=== PATIENT | female | born 1995 | race Caucasian/White ===

== ENCOUNTER 2016-10-27 17:08 | Observation (INO) | payer OTHER ==
[2016-10-27] MEDS ORDERED: ACETAMINOPHEN 325 MG TABLET PO ONE (19:19)
--- NOTE | 2016-10-27 19:22 | ER Document Report ---
ED Medical Screen (RME) - General Chief Complaint: Lower Abdominal Pain Stated Complaint: ABDOMINAL PAIN Mode of Arrival: Ambulatory Information source: Patient Notes: pt presents to the ED with c/o RLQ abd pain for 4 days. Has had this in the past , was in the process of being evaluated for ovarian cysts. Has had pain in past , worse for 4 days. TTP RLQ radiates to pelvic area, reports when she stands it feels like everything will fall out. - Related Data Allergies/Adverse Reactions: No Known Allergies Allergy (Unverified 10/27/16 19:19) Physical Exam - Vital signs Vitals: Temp Pulse Resp BP Pulse Ox 98.0 F 76 16 109/68 100 10/27/16 17:40 10/27/16 17:40 10/27/16 17:40 10/27/16 17:40 10/27/16 17:40 Course - Vital Signs Vital signs: Temp Pulse Resp BP Pulse Ox 98.0 F 76 16 109/68 100 10/27/16 17:40 10/27/16 17:40 10/27/16 17:40 10/27/16 17:40 10/27/16 17:40
[2016-10-27 20:10] LABS: ABSOLUTE EOSINOPHILS # (AUTO) 0.1 10^3/uL (0.0-0.6); ABSOLUTE LYMPHOCYTES (AUTO) 2.3 10^3/uL (0.5-4.7); ABSOLUTE NEUT (AUTO) 9.9 10^3/uL (1.7-8.2); BASOPHILS % (AUTO) 0.1 % (0-2); EOSINOPHILS % (AUTO) 0.8 % (0-6); HEMOGLOBIN 15.4 g/dL (12.0-15.5); HGB HCT DIFFERENCE -0.8; LYMPHOCYTES % (AUTO) 17.3 % (13-45); MEAN CORPUSCULAR HEMOGLOBIN 27.8 pg (27.0-33.4); MEAN CORPUSCULAR HGB CONC 32.8 g/dL (32.0-36.0); MEAN CORPUSCULAR VOLUME 85 fl (80-97); MONOCYTES % (AUTO) 7.5 % (3-13); RED BLOOD COUNT 5.54 10^6/uL (3.72-5.28); RED CELL DISTRIBUTION WIDTH 13.2 % (11.5-14.0); SEGMENTED NEUTROPHILS % (AUTO) 74.3 % (42-78); WHITE BLOOD COUNT 13.3 10^3/uL (4.0-10.5)
[2016-10-27 20:15] LABS: APPEARANCE,URINE SLIGHTLY-CLOUDY; BILIRUBIN,URINE NEGATIVE (NEGATIVE); GLUCOSE, URINE NEGATIVE (NEGATIVE); KETONES,URINE NEGATIVE (NEGATIVE); LEUKOCYTE ESTERASE,URINE SMALL (NEGATIVE); NITRITE,URINE NEGATIVE (NEGATIVE); PROTEIN,URINE NEGATIVE (NEGATIVE); URINE SPECIFIC GRAVITY 1.019; UROBILINOGEN,URINE NEGATIVE mg/dL (<2.0)
[2016-10-27 20:21] LABS: ALANINE AMINOTRANSFERASE 21 U/L (9-52); ALBUMIN 4.6 g/dL (3.5-5.0); ALKALINE PHOSPHATASE 65 U/L (38-126); ANION GAP 11 (5-19); ASPARTATE AMINO TRANSFERASE 18 U/L (14-36); BILIRUBIN,TOTAL 0.6 mg/dL (0.2-1.3); BLOOD UREA NITROGEN 12 mg/dL (7-20); CALCIUM 9.9 mg/dL (8.4-10.2); CARBON DIOXIDE 29 mmol/L (22-30); CHLORIDE 104 mmol/L (98-107); CREATININE RESULT 0.71 mg/dL (0.52-1.25); GLUCOSE 99 mg/dL (75-110); POTASSIUM 4.1 mmol/L (3.6-5.0); SODIUM 144.3 mmol/L (137-145); TOTAL PROTEIN 7.2 g/dL (6.3-8.2)
--- NOTE | 2016-10-27 22:32 | ER Document Report ---
ED GI/ - General Chief Complaint: Lower Abdominal Pain Stated Complaint: ABDOMINAL PAIN Time seen by provider: 22:32 Mode of Arrival: Ambulatory Information source: Patient TRAVEL OUTSIDE OF THE [place] IN LAST 30 DAYS: No - HPI Patient complains to provider of: Pelvic pain Onset: Other - 4 days Timing/Duration: Worse Quality of pain: Fullness, Pressure, Sharp Severity at maximum: Moderate Severity in ED: Moderate Pain Level: 4 Location: Pelvis Vaginal bleeding (Compared to normal period): None Associated symptoms: None Exacerbated by: Movement, Coughing Relieved by: Denies Similar symptoms previously: No Recently seen / treated by doctor: No Notes: 10/28/16 03:12 Patient is a 20-year-old female presenting to the emergency room complaining of right pelvic pain that's been going on for the past 4 days and worsening, she denies any vaginal bleeding or discharge, she does report she feels a strange pressure with urination but denies dysuria or hematuria, last menstrual period was 10/11/2016, patient denies any previous pregnancies - Related Data Allergies/Adverse Reactions: No Known Allergies Allergy (Unverified 10/27/16 19:19) Home Medications: Current Home Medications Nortriptyline HCl [Pamelor] 10/28/16 [History] Past Medical History - General Information source: Patient - Social History Smoking Status: Never Smoker Chew tobacco use (# tins/day): No Frequency of alcohol use: None Drug Abuse: None Family History: Reviewed & Not Pertinent Patient has suicidal ideation: No Patient has homicidal ideation: No Renal/ Medical History: Denies: Hx Peritoneal Dialysis Review of Systems - Review of Systems Constitutional: No symptoms reported EENT: No symptoms reported Cardiovascular: No symptoms reported Respiratory: No symptoms reported Gastrointestinal: No symptoms reported Genitourinary: No symptoms reported Female Genitourinary: See HPI Musculoskeletal: No symptoms reported Skin: No symptoms reported Hematologic/Lymphatic: No symptoms reported Neurological/Psychological: No symptoms reported -: Yes All other systems reviewed and negative Physical Exam - Vital signs Vitals: Temp Pulse Resp BP Pulse Ox 98.0 F 76 16 109/68 100 10/27/16 17:40 10/27/16 17:40 10/27/16 17:40 10/27/16 17:40 10/27/16 17:40 Interpretation: Normal - General General appearance: Appears well, Alert - HEENT Head: Normocephalic, Atraumatic Eyes: Normal Pupils: PERRL - Respiratory Respiratory status: No respiratory distress Chest status: Nontender Breath sounds: Normal Chest palpation: Normal - Cardiovascular Rhythm: Regular Heart sounds: Normal auscultation Murmur: No - Abdominal Inspection: Normal Distension: No distension Bowel sounds: Normal Tenderness: Tender - Tender to palpate in right adnexa Organomegaly: No organomegaly - Back Back: Normal, Nontender - Extremities General upper extremity: Normal inspection, Nontender, Normal color, Normal ROM , Normal temperature General lower extremity: Normal inspection, Nontender, Normal color, Normal ROM , Normal temperature, Normal weight bearing. No: Jj's sign - Neurological Neuro grossly intact: Yes Cognition: Normal Orientation: AAOx4 [place] Coma Scale Eye Opening: Spontaneous [place] Coma Scale Verbal: Oriented [place] Coma Scale Motor: Obeys Commands Oxly Coma Scale Total: 15 Speech: Normal Motor strength normal: LUE, RUE, LLE, RLE Sensory: Normal - Psychological Associated symptoms: Normal affect, Normal mood - Skin Skin Temperature: Warm Skin Moisture: Dry Skin Color: Normal Course - Re-evaluation Re-evalutation: 10/27/16 23:22 Patient discussed with on-call BREAKING MACHINE OPERATOR, Dr. Rocha who will come to the emergency room to evaluate patient 10/28/16 23:43 Patient was evaluated by on-call BREAKING MACHINE OPERATOR who will take patient to the OR for laparoscopic surgery for ectopic , patient stable at time of transfer of care - Vital Signs Vital signs: Temp Pulse Resp BP Pulse Ox 97.2 F 63 14 102/58 L 100 10/28/16 02:45 10/28/16 03:00 10/28/16 03:00 10/28/16 03:00 10/28/16 03:00 - Laboratory Result Diagrams: 10/27/16 19:40 10/27/16 19:40 Laboratory results interpreted by me: 10/27/16 10/27/16 10/27/16 19:40 19:40 19:40 WBC 13.3 H RBC 5.54 H Absolute Neutrophils 9.9 H Beta HCG, Quant 1329.20 H Ur Leukocyte Esterase SMALL H - Diagnostic Test Radiology reviewed: Image reviewed, Reports reviewed Discharge - Discharge Clinical Impression: Ectopic Qualifiers: Location of ectopic : unspecified location Intrauterine status: without intrauterine Qualified Code(s): O00.90 - Unspecified ectopic without intrauterine Condition: Stable Disposition: ADMITTED INPATIENT Admitting Provider: [facility] Admitted: Surgical Floor
[2016-10-28 00:18] LABS: PROTHROMBIN TIME 13.5 SEC (11.4-15.4)
[2016-10-28 00:19] LABS: PARTIAL THROMBOPLASTIN TIME 29.3 SEC (23.5-35.8)
--- NOTE | 2016-10-28 00:20 | PDOC H&P ---
History of Present Illness Admission Date/PCP: NO LOCALMD Patient complains of: right lower abdominal pain for 4 days worsening today, no vaginal bleeding. History of Present Illness: JOSH FOWLER is a 20 year old female at 2+3ega by LMP presents to ER for worsening Right lower abdominal pain over the last 4 days. She was unaware that she might be . She denies CP/SOB/N/V/fever. She reports menses on 10/11 was a light menses. Past Medical History LMP: 10/11/2016 Gynecological Infection: No Obstetrical History: none Past Surgical History Past Surgical History: Reports: Orthopedic Surgery - knee surgery, Tonsillectomy , Other - Skin graft on hand Social History Information Source: Patient Lives with: Family Smoking Status: Never Smoker Frequency of Alcohol Use: None Hx Recreational Drug Use: No Drugs: None Hx Prescription Drug Abuse: No - Advance Directive Resuscitation Status: Full Code Family History Family History: Reviewed & Not Pertinent Parental Family History Reviewed: No Children Family History Reviewed: NA Sibling(s) Family History Reviewed.: NA Medication/Allergy Home Medications: Nortriptyline HCl [Pamelor] 10/28/16 Allergies/Adverse Reactions: No Known Allergies Allergy (Unverified 10/27/16 19:19) Review of Systems Constitutional: ABSENT: chills, fever(s), headache(s), weight gain, weight loss Cardiovascular: ABSENT: chest pain, dyspnea on exertion, edema, orthropnea, palpitations Respiratory: ABSENT: cough, hemoptysis Gastrointestinal: PRESENT: abdominal pain, bloating, constipation. ABSENT: diarrhea, hematemesis, hematochezia, nausea, vomiting Genitourinary: ABSENT: dysuria, hematuria Musculoskeletal: ABSENT: joint swelling Integumentary: ABSENT: rash, wounds Neurological: ABSENT: abnormal gait, abnormal speech, confusion, dizziness, focal weakness, syncope Psychiatric: ABSENT: anxiety, depression, homidical ideation, suicidal ideation Endocrine: ABSENT: cold intolerance, heat intolerance, polydipsia, polyuria Hematologic/Lymphatic: ABSENT: easy bleeding, easy bruising Physical Exam - Physical Exam Vital Signs: Temp Pulse Resp BP Pulse Ox 98.0 F 76 16 109/68 100 10/27/16 17:40 10/27/16 17:40 10/27/16 17:40 10/27/16 17:40 10/27/16 17:40 Intake & Output 10/26/16 10/27/16 10/28/16 06:59 06:59 06:59 Weight 58.1 kg General appearance: PRESENT: no acute distress, cooperative, well-developed, well-nourished Head exam: PRESENT: atraumatic, normocephalic Respiratory exam: PRESENT: clear to auscultation marcos, symmetrical, unlabored. ABSENT: decreased breath sounds, retraction, tachypnea Cardiovascular exam: PRESENT: RRR. ABSENT: diastolic murmur, rubs, systolic murmur GI/Abdominal exam: PRESENT: guarding, normal bowel sounds, soft, tenderness, other - negative rovsigs. ABSENT: distended, mass, organolmegaly, rebound, rigid Rectal exam: PRESENT: deferred Extremities exam: PRESENT: full ROM. ABSENT: calf tenderness, clubbing, pedal edema Neurological exam: PRESENT: alert, awake, oriented to person, oriented to place , oriented to time, oriented to situation, CN II-XII grossly intact. ABSENT: motor sensory deficit Psychiatric exam: PRESENT: appropriate affect, normal mood. ABSENT: homicidal ideation, suicidal ideation Skin exam: PRESENT: dry, intact, warm. ABSENT: cyanosis, rash Result Laboratory Results: 10/27/16 19:40 10/27/16 19:40 10/27/16 10/27/16 10/27/16 19:40 19:40 19:40 WBC 13.3 H RBC 5.54 H Hgb 15.4 Hct 47.0 MCV 85 MCH 27.8 MCHC 32.8 RDW 13.2 Plt Count 283 Seg Neutrophils % 74.3 Lymphocytes % 17.3 Monocytes % 7.5 Eosinophils % 0.8 Basophils % 0.1 Absolute Neutrophils 9.9 H Absolute Lymphocytes 2.3 Absolute Monocytes 1.0 Absolute Eosinophils 0.1 Absolute Basophils 0.0 Sodium 144.3 Potassium 4.1 Chloride 104 Carbon Dioxide 29 Anion Gap 11 BUN 12 Creatinine 0.71 Est GFR ( Amer) > 60 Est GFR (Non-Af Amer) > 60 Glucose 99 Calcium 9.9 Total Bilirubin 0.6 AST 18 ALT 21 Alkaline Phosphatase 65 Total Protein 7.2 Albumin 4.6 Urine Color YELLOW Urine Appearance SLIGHTLY-CLOUDY Urine pH 7.0 Ur Specific Towner 1.019 Urine Protein NEGATIVE Urine Glucose (UA) NEGATIVE Urine Ketones NEGATIVE Urine Blood NEGATIVE Urine Nitrite NEGATIVE Ur Leukocyte Esterase SMALL H Urine WBC (Auto) 3 Urine RBC (Auto) 1 Impressions: Transvaginal US 10/27/16 19:18 IMPRESSION: NO VISUALIZED INTRA- urine . bHCG LEVEL TOO LOW TO EXPECT VISUALIZATION OF . ECTOPIC CANNOT BE EXCLUDED. FOLLOW-UP ULTRASOUND AND SERIAL BHCG LEVELS STRONGLY RECOMMENDED TO ACCURATELY ASSESS STATUS. Status: Image reviewed by me Assessment & Plan - Diagnosis (1) Ectopic Qualifiers: Location of ectopic : unspecified location Intrauterine status: without intrauterine Qualified Code(s): O00.90 - Unspecified ectopic without intrauterine Is this a current diagnosis for this admission?: YesPlan: Possible Tubal versus ovarian ectopic . Pt with worsening abdominal pain over the last 4 days. Positive UPT and BHCG quant 1329. US reviewed with ovarian cyst and significant amount of fluid in pelvis concerning for ruptured ectopic . R/B/A reviewed and pt to OR for Operative L/S with poss Salpingectomy vs Oophorectomy and removal of ectopic . (2) Ovarian cyst Qualifiers: Laterality: right Qualified Code(s): N83.201 - Unspecified ovarian cyst, right side Is this a current diagnosis for this admission?: YesPlan: Will eval introperative. poss contributor to pain. - Time Time Spent: 30 to 50 Minutes Critical Time spent with patient: Less than 15 minutes Medications reviewed and adjusted accordingly: Yes Anticipated discharge: Home Within: within 24 hours - Inpatient Certification Medical Necessity: Need Close Monitoring Due to Risk of Patient Decompensation, Need For IV Fluids, Need for Surgery Post Hospital Care: D/C Writer Producer Documentation - Plan Summary Plan Summary: to OR then monitor on the floor.
[2016-10-28] MEDS ORDERED: FENTANYL CITRATE INJ/PF 250 MCG/5 ML AMPULE ONE (00:53)
[2016-10-28] MEDS ORDERED: HYDROMORPHONE HCL INJ/PF 2 MG/ML AMPULE ONE (00:54)
[2016-10-28] MEDS ORDERED: MIDAZOLAM 2 MG/2 ML INJ ONE (00:54)
[2016-10-28] MEDS ORDERED: PROPOFOL INJ 200 MG/20 ML VIAL IV ONE (00:54)
[2016-10-28] MEDS ORDERED: CEFAZOLIN INJ 1 GM VIAL ONE (01:12)
[2016-10-28] MEDS ORDERED: PROMETHAZINE HCL INJ 25 MG/1 ML VIAL IV PRN (01:46)
[2016-10-28] MEDS ORDERED: MORPHINE SULFATE 10 MG/ML INJ IV PRN (01:46)
[2016-10-28] MEDS ORDERED: FENTANYL CITRATE INJ/PF 100 MCG/2 ML AMPUL IV PRN ×2 (01:46)
[2016-10-28] MEDS ORDERED: DIPHENHYDRAMINE HCL 50 MG/ML VIAL IV PRN (01:46)
[2016-10-28] MEDS ORDERED: MEPERIDINE HCL/PF INJ 25 MG/1 ML DISP.SYRIN IV PRN (01:46)
[2016-10-28] MEDS ORDERED: BUPIVACAINE HCL 0.25 % INJ/PF (2.5 MG/1 ML) 30 ML VIAL ONE (01:47)
[2016-10-28 02:11] LABS: CHLAM PCR NOT DETECTED (NOT DETECT)
[2016-10-28] MEDS ORDERED: HYDROMORPHONE HCL INJ/PF 2 MG/ML AMPULE IV PRN (03:32)
[2016-10-28] MEDS: OXYCODONE-ACETAMINOPHEN 5-325 MG TABLET PO PRN ×2 (04:06→12:56)
[2016-10-28] MEDS ORDERED: VECURONIUM BROMIDE INJ 10 MG VIAL IV ONE (08:23)
[2016-10-28] MEDS ORDERED: GLYCOPYRROLATE INJ 0.4 MG/2 ML VIAL ONE (08:23)
[2016-10-28] MEDS ORDERED: LIDOCAINE 2% INJ-PF (20 MG/ML) 10 ML AMPUL ONE (08:23)
[2016-10-28] MEDS ORDERED: SUCCINYLCHOLINE CHLORIDE INJ 200 MG/10 ML VIAL ONE (08:23)
[2016-10-28] MEDS ORDERED: DEXAMETHASONE SOD PHOSPHATE INJ 4 MG/1 ML VIAL ONE (08:23)
[2016-10-28] MEDS ORDERED: ONDANSETRON HCL INJ/PF 4 MG/2 ML SDV ONE (08:23)
[2016-10-28] MEDS ORDERED: NEOSTIGMINE METHYLSULFATE 10 MG/10 ML VIAL ONE (08:23)
[2016-10-28 15:49] LABS: ABSOLUTE LYMPHOCYTES (AUTO) 1.6 10^3/uL (0.5-4.7); ABSOLUTE MONOCYTES (AUTO) 1.6 10^3/uL (0.1-1.4); BASOPHILS % (AUTO) 0.1 % (0-2); HEMATOCRIT 36.9 % (36.0-47.0); HGB HCT DIFFERENCE 0.3; LYMPHOCYTES % (AUTO) 10.3 % (13-45); MEAN CORPUSCULAR HEMOGLOBIN 28.3 pg (27.0-33.4); MEAN CORPUSCULAR HGB CONC 33.6 g/dL (32.0-36.0); MEAN CORPUSCULAR VOLUME 84 fl (80-97); MONOCYTES % (AUTO) 10.3 % (3-13); RED BLOOD COUNT 4.38 10^6/uL (3.72-5.28); RED CELL DISTRIBUTION WIDTH 12.9 % (11.5-14.0); SEGMENTED NEUTROPHILS % (AUTO) 79.3 % (42-78); WHITE BLOOD COUNT 15.1 10^3/uL (4.0-10.5)
[2016-10-28 15:59] LABS: HEMOGLOBIN 12.4 g/dL (12.0-15.5)
--- NOTE | 2016-10-28 17:21 | PDOC DISCHARGE SUMMARY ---
General - Admit/Disc Date/PCP Admission Date/Primary Care Provider: 10/28/16 00:02 HOMERO PHILLIPS MD Discharge Date: 10/28/16 - Discharge Diagnosis (1) Ectopic Is this a current diagnosis for this admission?: Yes - Additional Information Resuscitation Status: Full Code Home Medications: Ibuprofen 800 mg PO Q8HP PRN #60 tablet 10/28/16 Oxycodone HCl/Acetaminophen [Percocet 5-325 mg Tablet] 1 tab PO Q4HP PRN #30 tablet 10/28/16 History of Present Illness History of Present Illness: JOSH FOWLER is a 20 year old female Hospital Course Hospital Course: s/p diagnositic laparoscope and removal of ectopic Physical Exam - Physical Exam Vital Signs: Temp Pulse Resp BP Pulse Ox 98.2 F 91 18 110/68 98 10/28/16 12:56 10/28/16 12:56 10/28/16 12:56 10/28/16 12:56 10/28/16 12:56 Intake & Output 10/27/16 10/28/16 10/29/16 06:59 06:59 06:59 Intake Total 2100 700 Output Total 125 925 Balance 1975 - General appearance: PRESENT: no acute distress, cooperative GI/Abdominal exam: PRESENT: soft, tenderness - appropriate post operative pain, nondistended. incision c/d/intact Result Laboratory Results: 10/28/16 15:20 10/28/16 15:20 WBC 15.1 H RBC 4.38 Hgb 12.4 D Hct 36.9 MCV 84 MCH 28.3 MCHC 33.6 RDW 12.9 Plt Count 222 Seg Neutrophils % 79.3 H Lymphocytes % 10.3 L Monocytes % 10.3 Eosinophils % 0.0 Basophils % 0.1 Absolute Neutrophils 12.0 H Absolute Lymphocytes 1.6 Absolute Monocytes 1.6 H Absolute Eosinophils 0.0 Absolute Basophils 0.0 Impressions: Transvaginal US 10/27/16 19:18 IMPRESSION: NO VISUALIZED INTRA- urine . bHCG LEVEL TOO LOW TO EXPECT VISUALIZATION OF . ECTOPIC CANNOT BE EXCLUDED. FOLLOW-UP ULTRASOUND AND SERIAL BHCG LEVELS STRONGLY RECOMMENDED TO ACCURATELY ASSESS STATUS. Plan Discharge Plan: discharge home. f/u at [facility] with Dr. Phillips tomorrow Time Spent: Less than 30 Minutes
[2016-10-28 18:48] VITALS: BP 97/51
== END 2016-10-28 19:55 | disposition home or self-care (01) ==
LOC: ER 17:08 → INTOOBSV 10-28 00:02 → EH 10-28 00:02 → UNDOADMIN 10-28 00:21 → EH 10-28 00:21 → 2S 10-28 04:00
PROVIDERS: ADMIT Student in an Organized Health Care Education/Training Program; ATTEND Student in an Organized Health Care Education/Training Program
PROC: 10D28ZZ Extraction of Products of Conception, Ectopic, Via Natural or Artificial Opening Endoscopic (ICD-10-PCS; principal; 2016-10-27)
PROC: 0UB04ZZ Excision of Right Ovary, Percutaneous Endoscopic Approach (ICD-10-PCS; 2016-10-27)
DX: O00.90 Unspecified ectopic pregnancy without intrauterine pregnancy (principal); N83.201 Unspecified ovarian cyst, right side
CPT/HCPCS: 99285; 86900; 86901; 36415 ×2; 86850; 84702 ×2; 85025 ×2; 85610; 85730; 80053; 81001; 87491; 87591; 88305 ×2; 76817; 93976; 59150; 58662; G0378 ×2; J2250; J0690; J1100; J3010; J3490 ×2; J1170; J0330; J2405; J2704; 840

== ENCOUNTER 2016-12-10 15:14 | Emergency (ER) | payer OTHER ==
--- NOTE | 2016-12-10 16:04 | ER Document Report ---
ED Medical Screen (RME) - General Chief Complaint: Abdominal Pain Stated Complaint: ABDOMINAL PAIN Notes: Patient is complaining of anything in the right lower quadrant of her abdomen where she underwent surgery for an ectopic in the abdominal wall on October 28. The pain returned about 5-6 days ago and feels exactly like it did prior to her surgery for the ectopic on October 28. She's not had any GI symptoms. No UTI symptoms. No fever. LMP 4/13. TRAVEL OUTSIDE OF THE [place] IN LAST 30 DAYS: No - Related Data Allergies/Adverse Reactions: No Known Allergies Allergy (Verified 12/10/16 15:34) Past Medical History Renal/ Medical History: Denies: Hx Peritoneal Dialysis Past Surgical History: Reports: Hx Orthopedic Surgery - knee surgery, Hx Tonsillectomy, Other - Skin graft on hand Physical Exam - Vital signs Vitals: Temp Pulse Resp BP Pulse Ox 98.6 F 98 20 120/89 H 98 12/10/16 15:36 12/10/16 15:36 12/10/16 15:36 12/10/16 15:36 12/10/16 15:36 Course - Vital Signs Vital signs: Temp Pulse Resp BP Pulse Ox 98.6 F 98 20 120/89 H 98 12/10/16 15:36 12/10/16 15:36 12/10/16 15:36 12/10/16 15:36 12/10/16 15:36
[2016-12-10 16:21] LABS: ABSOLUTE EOSINOPHILS # (AUTO) 0.1 10^3/uL (0.0-0.6); ABSOLUTE LYMPHOCYTES (AUTO) 1.7 10^3/uL (0.5-4.7); ABSOLUTE MONOCYTES (AUTO) 0.5 10^3/uL (0.1-1.4); ABSOLUTE NEUT (AUTO) 4.4 10^3/uL (1.7-8.2); BASOPHILS % (AUTO) 0.2 % (0-2); EOSINOPHILS % (AUTO) 1.1 % (0-6); HEMATOCRIT 45.3 % (36.0-47.0); HEMOGLOBIN 15.3 g/dL (12.0-15.5); HGB HCT DIFFERENCE 0.6; LYMPHOCYTES % (AUTO) 25.9 % (13-45); MEAN CORPUSCULAR HEMOGLOBIN 28.7 pg (27.0-33.4); MEAN CORPUSCULAR HGB CONC 33.8 g/dL (32.0-36.0); MEAN CORPUSCULAR VOLUME 85 fl (80-97); MONOCYTES % (AUTO) 7.1 % (3-13); RED BLOOD COUNT 5.35 10^6/uL (3.72-5.28); RED CELL DISTRIBUTION WIDTH 13.5 % (11.5-14.0); SEGMENTED NEUTROPHILS % (AUTO) 65.7 % (42-78); WHITE BLOOD COUNT 6.7 10^3/uL (4.0-10.5)
[2016-12-10 16:28] LABS: APPEARANCE,URINE SLIGHTLY-CLOUDY; BILIRUBIN,URINE NEGATIVE (NEGATIVE); GLUCOSE, URINE NEGATIVE (NEGATIVE); KETONES,URINE NEGATIVE (NEGATIVE); LEUKOCYTE ESTERASE,URINE NEGATIVE (NEGATIVE); NITRITE,URINE NEGATIVE (NEGATIVE); PROTEIN,URINE NEGATIVE (NEGATIVE); URINE SPECIFIC GRAVITY 1.009; UROBILINOGEN,URINE NEGATIVE mg/dL (<2.0)
[2016-12-10 16:39] LABS: ALANINE AMINOTRANSFERASE 24 U/L (9-52); ALBUMIN 4.6 g/dL (3.5-5.0); ALKALINE PHOSPHATASE 63 U/L (38-126); ANION GAP 13 (5-19); ASPARTATE AMINO TRANSFERASE 19 U/L (14-36); BILIRUBIN,DIRECT 0.1 mg/dL (0.0-0.4); BILIRUBIN,TOTAL 0.6 mg/dL (0.2-1.3); BLOOD UREA NITROGEN 10 mg/dL (7-20); CALCIUM 9.5 mg/dL (8.4-10.2); CARBON DIOXIDE 26 mmol/L (22-30); CHLORIDE 104 mmol/L (98-107); CREATININE RESULT 0.66 mg/dL (0.52-1.25); GLUCOSE 93 mg/dL (75-110); LIPASE 69.3 U/L (23-300); POTASSIUM 3.8 mmol/L (3.6-5.0); SODIUM 143.3 mmol/L (137-145)
--- NOTE | 2016-12-10 16:52 | ER Document Report ---
ED General - General Chief Complaint: Abdominal Pain Stated Complaint: ABDOMINAL PAIN Mode of Arrival: Ambulatory Information source: Patient Notes: Patient presents emergency department with complaints of right lower quadrant abdominal pain for the past few days. Patient reports she had a recent ectopic on her abdominal wall in October. She had surgery. She reports this pain feels the exact same way. She reports increased pain when she rolls over in bed or with movement. She denies other symptoms such as fever vomiting diarrhea. She reports this time she feels more relieved after she voids. She contacted her BUSINESS EDUCATION PROFESSOR and was told to come to the emergency department. TRAVEL OUTSIDE OF THE [place] IN LAST 30 DAYS: No - HPI Onset: Other - past few days Onset/Duration: Persistent, Waxing and waning Quality of pain: Achy, Sharp Severity: Moderate Pain Level: 3 - declines pain medication Associated symptoms: None Exacerbated by: Movement Relieved by: Denies Similar symptoms previously: Yes - recent ectopic Recently seen / treated by doctor: Yes - october 2016 - Related Data Allergies/Adverse Reactions: No Known Allergies Allergy (Verified 12/10/16 15:34) Past Medical History - General Information source: Patient Last Menstrual Period: 12/04/16 - Social History Smoking Status: Never Smoker Chew tobacco use (# tins/day): No Frequency of alcohol use: Rare Drug Abuse: None Lives with: Family Family History: Reviewed & Not Pertinent Patient has suicidal ideation: No Patient has homicidal ideation: No Renal/ Medical History: Reports: Hx Ectopic . Denies: Hx Peritoneal Dialysis Past Surgical History: Reports: Hx Gynecologic Surgery - Emergency ectopic surgery, Hx Orthopedic Surgery - knee surgery, Hx Tonsillectomy, Other - Skin graft on hand Review of Systems - Review of Systems Notes: Review HPI for review of systems., All other systems negative Physical Exam - Vital signs Vitals: Temp Pulse Resp BP Pulse Ox 98.6 F 98 20 120/89 H 98 12/10/16 15:36 12/10/16 15:36 12/10/16 15:36 12/10/16 15:36 12/10/16 15:36 - Notes Notes: PHYSICAL EXAMINATION: GENERAL: Well-appearing and in no acute distress anxious HEAD: Atraumatic, normocephalic. EYES: Pupils equal round extraocular movements intact, sclera anicteric, conjunctiva are normal. ENT: nares patent, Moist mucous membranes. NECK: Normal range of motion, supple without lymphadenopathy LUNGS: CTAB and equal. No wheezes rales or rhonchi. HEART: Regular rate and rhythm without murmurs ABDOMEN: Soft,Slight RLQ tenderness. No pain with obturator, no pain with heel tap, No guarding, no rebound EXTREMITIES: Normal range of motion, no pitting edema. No cyanosis. NEUROLOGICAL: Cranial nerves grossly intact. Normal sensory/motor PSYCH: Normal mood, normal affect. SKIN: Warm, Dry, normal turgor, no rashes or lesions noted Course - Re-evaluation Re-evalutation: 12/10/16 17:53 Labs unremarkable negative test normal transvaginal ultrasound. Patient instructed on all results. Patient instructed to follow up with her CORPORATE SECURITY OFFICER tomorrow as scheduled. - Vital Signs Vital signs: Temp Pulse Resp BP Pulse Ox 98.6 F 98 20 120/89 H 98 12/10/16 15:36 12/10/16 15:36 12/10/16 15:36 12/10/16 15:36 12/10/16 15:36 - Laboratory Result Diagrams: 12/10/16 16:10 12/10/16 16:10 Laboratory results interpreted by me: 12/10/16 16:10 RBC 5.35 H - Diagnostic Test Radiology reviewed: Image reviewed, Reports reviewed - Diagnostic report text EXAM DESCRIPTION: U/S NON OB PEL TV W/DOPPLER COMPLETED DATE/TIME: 2016 5:33 pm REASON FOR STUDY: pain in RLQ, Hx ectopic surgery on right 10/28 COMPARISON: None. TECHNIQUE: Dynamic and static grayscale images acquired of the pelvis via transvaginal approach and recorded on PACS. Additional selected color Doppler and spectral images recorded. LIMITATIONS: None. FINDINGS: UTERUS: Contour normal. No mass. ENDOMETRIAL STRIPE: No focal or generalized thickening. No masses. CERVIX: No nabothian cysts. RIGHT OVARY: No abnormal masses. RIGHT OVARY DOPPLER: Normal arterial vascular flow without evidence for torsion. LEFT OVARY: No abnormal masses. LEFT OVARY DOPPLER: Normal arterial vascular flow without evidence for torsion. FREE FLUID: None noted. OTHER: No other significant finding. MEASUREMENTS: UTERUS: 7.3 x 3.6 x 4.3 cm. ENDOMETRIAL STRIPE: 6.2 mm. RIGHT OVARY: 3.1 x 2.3 x 2.0 cm. LEFT OVARY: 2.7 x 2.1 x 1.7 cm. TECHNICAL DOCUMENTATION: JOB ID: [id number] [employer]- All Rights Reserved US/U/S NON OB PEL TV W/DOPPLER IMPRESSION: NORMAL TRANSVAGINAL PELVIC ULTRASOUND Discharge - Discharge Clinical Impression: Abdominal pain Qualifiers: Abdominal location: right lower quadrant Qualified Code(s): R10.31 - Right lower quadrant pain Condition: Stable Disposition: HOME, SELF-CARE Instructions: Abdominal Pain ([facility]), Use of [id number] Ibuprofen ([facility]) Additional Instructions: *You have been evaluated for abdominal pain *Take tylenol or ibuprofen as indicated *Follow up with a primary care provider or BUSINESS EDUCATION PROFESSOR within 3 days for recheck *Return to ED for worsening condition, changes, needs, increased pain, concerns *Return to ED if not better in 24 hours
[2016-12-10 18:13] VITALS: BP 115/63
== END 2016-12-10 18:13 | disposition home or self-care (01) ==
LOC: ER 15:14
DX: R10.31 Right lower quadrant pain (principal); R10.9 Unspecified abdominal pain
CPT/HCPCS: 36415; 76830; 80053; 81001; 83690; 84702; 85025; 93976; 99284

== ENCOUNTER → 2016-12-11 | Outpatient (CLI) | payer OTHER | LOC: RAD 15:11 | PROVIDERS: ATTEND Student in an Organized Health Care Education/Training Program | DX: N97.9 Female infertility, unspecified (principal) | CPT/HCPCS: 58340; 74740 ==

== ENCOUNTER → 2017-01-08 | Outpatient (CLI) | payer OTHER | LOC: RAD 12:48 | PROVIDERS: ATTEND Student in an Organized Health Care Education/Training Program | DX: N97.1 Female infertility of tubal origin (principal) | CPT/HCPCS: 58340; 74740 ==